=== PATIENT | female | born 1995 | race African-American/Black ===

== ENCOUNTER 2017-11-08 20:32 | Emergency (ER) | payer OTHER ==
[~2017-11-08] VITALS: Ht 160 cm; Wt 54.4 kg
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
[2017-11-08 21:36] VITALS: BP 114/70
== END 2017-11-08 21:36 ==
LOC: EDBD 20:32 → EMR 21:08
DX: Z04.8 Encounter for examination and observation for other specified reasons (principal); Y04.2XXA Assault by strike against or bumped into by another person, initial encounter; Y92.9 Unspecified place or not applicable; F41.9 Anxiety disorder, unspecified
CPT/HCPCS: 99283